=== PATIENT | female | born 1960 | race Caucasian/White ===

== ENCOUNTER 2016-11-29 17:16 | Inpatient (IN) | payer SELFPAY ==
[~2016-11-29] VITALS: Ht 165.1 cm; Wt 54.9 kg
--- NOTE | 2016-11-29 17:26 | NUR ---
bibra from home due to generalized weakness,. nausea and vomitting x 1 week. Patient is aao4, appears in no apparent distress. Respiration even and unlabored. Skin is warm to touch and non diaphoretic, patient is afebrile. vss. Reported x1 vomitting today. No diarhea noted./
[2016-11-29] MEDS ORDERED: IV NS 0.9% 1,000 ML ONE (17:28)
[2016-11-29] MEDS ORDERED: IV SET PRIMARY PUMP SET 1 EA INFUS.SET MC ONE ×3 (17:28→20:49)
[2016-11-29] MEDS ORDERED: ONDANSETRON HCL/PF 4 MG/2 ML VIAL ONE (17:28)
[2016-11-29] MEDS ORDERED: IV NS 0.9% 1,000 ML BAG IV ONE (17:30)
[2016-11-29] MEDS ORDERED: ONDANSETRON HCL/PF 4 MG/2 ML VIAL IVP ONE (17:30)
[2016-11-29 17:44] LABS: BASOPHILS # (AUTO) 0.3 /CMM (0.0-0.2); BASOPHILS % (AUTO) 2.1 % (0.0-2.0); EOSINOPHILS % (AUTO) 0.1 % (0.0-6.0); HEMATOCRIT 38 % (33-45); HEMOGLOBIN 12.7 g/dL (11.5-14.8); LYMPHOCYTES # (AUTO) 0.6 /CMM (0.8-4.8); LYMPHOCYTES % (AUTO) 4.3 % (20.0-44.0); MEAN CORPUSCULAR HEMOGLOBIN 33 PG (26.0-33.0); MEAN CORPUSCULAR HGB CONC 33 g/dl (31.0-36.0); MEAN CORPUSCULAR VOLUME 99 fL (82-100); MONOCYTES # (AUTO) 0.7 /CMM (0.1-1.30); MONOCYTES % (AUTO) 5.2 % (2.0-12.0); NEUTROPHILS % (AUTO) 88.3 % (43.0-81.0); PLATELET COUNT (AUTO) 348 /CMM (150-450); RDW COEFFICIENT OF VARIATION 13.4 (11.5-15.0); RED BLOOD CELL COUNT(AUTO) 3.86 MIL/uL (4.0-5.2); WHITE BLOOD COUNT (AUTO) 13.6 K/uL (4.3-11.0)
[2016-11-29 17:51] LABS: ALBUMIN 2.3 g/dL (3.4-5.0); BILIRUBIN,DIRECT 0.4 mg/dL (0.0-0.2); BILIRUBIN,TOTAL 1.3 mg/dL (0.2-1.0); CALCIUM, SERUM 8.4 mg/dL (8.5-10.1); CREATININE 0.9 mg/dL (0.6-1.3); TOTAL PROTEIN, SERUM 6.6 g/dL (6.4-8.2)
[2016-11-29 17:56] LABS: POTASSIUM 2.4 mmol/L (3.5-5.1)
[2016-11-29] MEDS ORDERED: POTASSIUM CHLORIDE 20 MEQ TAB.PRT.SR PO ONE ×2 (18:22→18:30)
[2016-11-29] MEDS ORDERED: POTASSIUM CL. PREMIX PERIPHER. 50 ML ONE ×2 (18:22→19:15)
[2016-11-29] MEDS: POTASSIUM CL. PREMIX PERIPHER. 50 ML IV SCH ×4 (18:24→21:49)
--- NOTE | 2016-11-29 18:24 | NUR ---
1 out of 4 of Potassium 10meq/50ml started to lac 20
--- NOTE | 2016-11-29 19:06 | NUR ---
REPORT GIVEN TO RENY EDEN
--- NOTE | 2016-11-29 19:34 | NUR ---
Received patient in bed aaox4, no s/s of acute distress. Denies n/v. KCL ivp ongoing. vss monitoring done.
[2016-11-29] MEDS ORDERED: HYDROCODONE/APAP 5/325MG 1 EACH TABLET PO PRN (20:00)
[2016-11-29] MEDS ORDERED: ACETAMINOPHEN 325 MG TABLET PO PRN (20:00)
[2016-11-29] MEDS ORDERED: ZOLPIDEM TARTRATE 5 MG TABLET PO PRN (20:00)
[2016-11-29] MEDS ORDERED: ONDANSETRON HCL/PF 4 MG/2 ML VIAL IVP PRN (20:00)
[2016-11-29] MEDS ORDERED: Z GUARD REMEDY 2 OZ OINT TP PRN (20:00)
[2016-11-29] MEDS ORDERED: MAGNESIUM HYDROXIDE 30 ML UDC PO PRN (20:00)
[2016-11-29] MEDS ORDERED: MAG HYDROX/AL HYDROX/SIMETH 30 ML UDC PO PRN (20:00)
--- NOTE | 2016-11-29 20:05 | NUR ---
Report given to Cheyenne OGLESBY for admission and charlee.
[2016-11-29 20:30] VITALS: BP 125/73
--- NOTE | 2016-11-29 20:37 | NUR ---
2nd bag of kcl ivpb completed, no adr noted. Transported patient to tele bed 322-1 via als protocol, no incident noted. Cheyenne OGLESBY at bedside.
[2016-11-29] MEDS ORDERED: IV NS 0.9% 250 ML IV ONE (20:49)
[2016-11-29 21:00] VITALS: BP 125/73
[2016-11-29] MEDS ORDERED: IV PREMIX NS +20MEQ KCL 1 L IV ONE (22:25)
[2016-11-29] MEDS: Potassium Chloride 20 MEQ in IV NS 0.9% 1,000 ML IV PRN (23:07)
[2016-11-30] VITALS (8 sets, daily range): BP systolic 114–134; BP diastolic 68–83
[2016-11-30 02:41] LABS: APPEARANCE,URINE SL CLOUDY (CLEAR); BILIRUBIN,URINE NEGATIVE (NEGATIVE); BLOOD, URINE 1+ Ery/uL (NEGATIVE); COLOR,URINE YELLOW (YELLOW); KETONES,URINE NEGATIVE (NEGATIVE); LEUKOCYTE ESTERASE ,URINE 2+ (NEGATIVE); NITRITE, URINE NEGATIVE (NEGATIVE); PH,URINE 6.5 (5.0-8.0); PROTEIN,URINE TRACE mg/dl (NEGATIVE); UGLUCOSE NEGATIVE (NEGATIVE)
[2016-11-30 02:59] LABS: BACTERIA,URINE 2+ /HPF (None Seen); SQUAMOUS EPITHELIAL CELL,UR Moderate /HPF (None Seen)
--- NOTE | 2016-11-30 06:21 | NUR ---
RN NOTE; PT IN BED SLEEPING, AROUSES EASILY. BREATHING EVENLY. NO SOB. NAD. SR ON TELE MONITOR. NO EPISODE OF VOMITING OR DIARRHEA. STILL W/ LOW GRADE FEVER , MD AWARE. URINE SAMPLE SENT OUT FOR U/A AND C&S. ON ONGOING IVF HYDRATION EFRA WELL. ASSISTED W/ ADLS .CALL LIGHT WITHIN REACH. WILL CONT TO MONITOR AND WILL ENDORSE TO AM SHIFT FOR LAURENCE.
[2016-11-30] MEDS: PANTOPRAZOLE 40 MG TABLET.DR PO SCH (06:55)
[2016-11-30 07:34] LABS: BASOPHILS % (AUTO) 0.1 % (0.0-2.0); EOSINOPHILS % (AUTO) 0.1 % (0.0-6.0); HEMATOCRIT 38 % (33-45); HEMOGLOBIN 12.9 g/dL (11.5-14.8); LYMPHOCYTES # (AUTO) 0.6 /CMM (0.8-4.8); LYMPHOCYTES % (AUTO) 5.5 % (20.0-44.0); MEAN CORPUSCULAR HEMOGLOBIN 34 PG (26.0-33.0); MEAN CORPUSCULAR HGB CONC 35 g/dl (31.0-36.0); MEAN CORPUSCULAR VOLUME 99 fL (82-100); MONOCYTES # (AUTO) 0.5 /CMM (0.1-1.30); MONOCYTES % (AUTO) 4.3 % (2.0-12.0); NEUTROPHILS # (AUTO) 9.7 /CMM (1.8-8.9); PLATELET COUNT (AUTO) 320 /CMM (150-450); RDW COEFFICIENT OF VARIATION 14.1 (11.5-15.0); RED BLOOD CELL COUNT(AUTO) 3.78 MIL/uL (4.0-5.2); WHITE BLOOD COUNT (AUTO) 10.7 K/uL (4.3-11.0)
[2016-11-30 08:00] LABS: CREATININE 0.8 mg/dL (0.6-1.3); MAGNESIUM 1.7 mg/dL (1.8-2.4); PHOSPHORUS 2.4 mg/dL (2.5-4.9); POTASSIUM 3.1 mmol/L (3.5-5.1)
--- NOTE | 2016-11-30 08:00 | NUR ---
RN OPENING NOTES RECEIVED PATIENT ON BED SLEEPING, AROUSES EASILY. RESPIRATIONS EVEN AND UNLABORED. NO ACUTE DISTRESS NOTED. TELEMETRY SINUS RHYTHM 79. NO COMPLAINS OF NAUSEA, NO EPISODES OF VOMITING. PATIENT TEMPERATURE 99.2, COOLING MEASURES INITIATED. BED IN LOWEST POSITION, SIDERAILS UPX2. CALL LIGHT WITHIN REACH. WILL CONTINUE TO MONITOR.
--- NOTE | 2016-11-30 11:33 | NUR ---
MED RECON/[facility]IDENT [facility] NOTE: PATIENT WITH ALLERGY WITH CODEINE, MADE AWARE OF MD ORDER OF NORCO. PATIENT STATED "I HAD NORCO BEFORE AND DIDN'T HAVE ANY REACTION". 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 PRIMARY NURSE AND PHARMACY MADE AWARE.
--- NOTE | 2016-11-30 11:56 | NUR ---
PATIENT COMPLAINING OF NAUSEA, ZOFRAN GIVEN ORDERED.
[2016-11-30] MEDS ORDERED: POTASSIUM CHLORIDE 20 MEQ POWDER PACKET PO ONE (12:00)
[2016-11-30] MEDS ORDERED: MAGNESIUM OXIDE 400 MG TABLET PO ONE (12:00)
[2016-11-30] MEDS ORDERED: NEUTRA PHOS 1 POWD.PACKET PO ONE (12:00)
--- NOTE | 2016-11-30 18:30 | NUR ---
RN CLOSING NOTES PATIENT ON BED, AWAKE, WITH FAMILY ON BEDSIDE. NO ACUTE DISTRESS NOTED. ALL NEEDS ATTENDED AND PROVIDED. BED IN LOWEST POSITION. SIDERAILS UP X2. CALL LIGHT WITHIN REACH. WILL ENDORSED TO HEPATOLOGY PHYSICIAN RN FOR CONTINUITY OF CARE.
[2016-11-30] MEDS: Potassium Chloride 20 MEQ in IV NS 0.9% 1,000 ML IV PRN (19:09)
--- NOTE | 2016-11-30 19:55 | NUR ---
RN INITIAL NOTES RECEIVED REPORT FROM DAY RN. PATIENT IS AWAKE IN BED RELAXING. RESPIRATIONS EVEN AND UNLABORED. NO ACUTE DISTRESS NOTED. TELEMETRY SINUS RHYTHM 72 WITH OCCASIONAL PVCS. NO COMPLAINS OF NAUSEA OR VOMITTING. BED IN LOWEST POSITION, SIDERAILS UPX2. CALL LIGHT WITHIN REACH. WILL CONTINUE TO MONITOR.
[2016-11-30] MEDS ORDERED: SET RED CAP 1 EA INFUS.SET MC ONE (22:00)
[2016-11-30] MEDS ORDERED: IV SET PRIMARY PUMP SET 1 EA INFUS.SET MC ONE (22:00)
[2016-11-30] MEDS ORDERED: FILTER SET SAVER IV SET 1 EA INFUS.SET MC ONE (22:00)
[2016-12-01] VITALS: BP 125/65
[2016-12-01 00:46] VITALS: BP 125/65
[2016-12-01 04:00] VITALS: BP 127/80
[2016-12-01 04:19] VITALS: BP 127/80
[2016-12-01] MEDS: Potassium Chloride 20 MEQ in IV NS 0.9% 1,000 ML IV PRN (05:56)
[2016-12-01 06:31] VITALS: BP 120/65
--- NOTE | 2016-12-01 06:33 | NUR ---
MS RN CLOSING NOTE PT IN BED RELAXING. BREATHING EVENLY. NO SOB. SR WITH OCCASIONAL PVCS ON TELE MONITOR. NO EPISODE OF VOMITING OR DIARRHEA. ON ONGOING NS + 20 MEQKCL . POSSIBLE DISCHARGE TODAY, EXIT CARE WAS STARTED. CALL LIGHT WITHIN REACH. WILL CONT TO MONITOR AND WILL ENDORSE TO AM SHIFT FOR LAURENCE.
--- NOTE | 2016-12-01 07:10 | NUR ---
SILVER PLATER OPENING NOTES RECEIVED PT. FROM NIGHTSHIFT NURSE IN STABLE CONDITION. PT. IS A/O X3. ON TELE MONITORING WITH SINUS RHYTHM. HR 70. NO SOB OR SIGNS OF DISTRESS NOTED. BREATHING IS EVEN AND UNLABORED. PT. DENIES ANY PAIN AT THIS TIME. IV PRESENT ON LEFT AC 20 INFUSING NS WITH 20 MEQ KCL @ 100ML/HR. PT. TOLERATING INFUSION WELL. NO REDNESS OR SIGNS OF INFILTRATION NOTED. BED IN LOW LOCKED POSITION, SIDE RAILS UP X2, CALL LIGHT WITHIN REACH. WILL CONTINUE TO MONITOR.
[2016-12-01 08:00] VITALS: BP 120/65
[2016-12-01] MEDS: PANTOPRAZOLE 40 MG TABLET.DR PO SCH (08:15)
--- NOTE | 2016-12-01 14:53 | NUR ---
MS INTEL RECRUITER NOTE PT. WAS DISCHARGED FROM UNIT IN STABLE CONDITION. ALL NEEDS MET DURING SHIFT AND ORDERS CARRIED OUT ACCORDINGLY. WAS SAFELY WHEELED TO PRIVATE VEHICLE BY LOPEZ IBRAHIM ANIMAL ASSISTED THERAPIST. LEFT THE HOSPITAL VIA PRIVATE VEHICLE DRIVEN BY HER BOYFRIEND.
== END 2016-12-01 15:00 | disposition home or self-care (01) | DRG 640 ==
LOC: ER 17:18 → TELE 20:21 → MED 12-01 12:42
PROVIDERS: ADMIT Internal Medicine; ATTEND Internal Medicine
DX: E86.0 Dehydration (principal); E43 Unspecified severe protein-calorie malnutrition; E44.0 Moderate protein-calorie malnutrition; E87.1 Hypo-osmolality and hyponatremia; E87.6 Hypokalemia; E86.1 Hypovolemia; D72.829 Elevated white blood cell count, unspecified; E83.39 Other disorders of phosphorus metabolism; E88.09 Other disorders of plasma-protein metabolism, not elsewhere classified; E83.42 Hypomagnesemia; B34.9 Viral infection, unspecified; M62.50 Muscle wasting and atrophy, not elsewhere classified, unspecified site; R53.1 Weakness; Z68.20 Body mass index [BMI] 20.0-20.9, adult
CPT/HCPCS: 36415; 71010-TC; 80048-TC; 80076-TC; 81000-TC; 83735-TC; 84100-TC; 85025-TC; 87081-TC; 87086-TC; 87186-TC; 87400; A4606; J2405; J3480; J3490; J7030; J7050; Z7610